=== PATIENT | male | born 1970 | race Caucasian/White ===

== ENCOUNTER 2017-12-17 18:49 | Emergency (ER) | payer OTHER ==
--- NOTE | 2017-12-17 19:30 | ED Physician Documentation ---
PD HPI LOWER EXT INJURY - Stated complaint Stated Complaint: ANKLE PAIN - Chief complaint Chief Complaint: Ext Problem - History obtained from History obtained from: Patient - History of Present Illness PD HPI LOW EXT INJURY LOCATION: Left, Ankle Type of injury: Twist Timing - onset: Today Timing - duration: Hours (6) Timing - details: Abrupt onset Pain level max: 6 Pain level now: 4 Improved by: Rest, Ice, Immobilization Worsened by: Moving, Palpating Associated symptoms: Swelling. No: Weakness, Numbness, Tingling, Discolored Contributing factors: No: Anticoagulated Recently seen: Not recently seen Review of Systems Neurologic: denies: Focal weakness, Numbness PD PAST MEDICAL HISTORY - Past Medical History Cardiovascular: Hypertension, High cholesterol - Past Surgical History Past Surgical History: No - Present Medications Home Medications: Ambulatory Orders Medication Instructions Recorded Confirmed Atorvastatin Calcium [Lipitor] 10 mg PO DAILY 08/21/14 08/21/14 hydroCHLOROthiazide 25 mg PO DAILY 08/21/14 08/21/14 [Hydrochlorothiazide] Meloxicam [Mobic] 7.5 mg PO BID PRN #20 tablet 12/17/17 - Allergies Allergies/Adverse Reactions: Allergies Allergy/AdvReac Type Severity Reaction Status Date / Time No Known Drug Allergies Allergy Verified 12/17/17 18:57 - Social History Does the pt smoke?: No Smoking Status: Never smoker Does the pt drink ETOH?: Yes Does the pt have substance abuse?: No - Immunizations Immunizations are current?: Yes - POLST Patient has POLST: Yes PD ED PE NORMAL - Vitals Vital signs reviewed: Yes - General General: Alert and oriented X 3, No acute distress - Derm Derm: Warm and dry - Extremities Extremities: Other (Left ankle - Mild soft tissue swelling, especially around the lateral malleolus. Tenderness palpation at this point. No tenderness over the foot. Neurovascularly intact. Has been able to ambulate on the ankle.) - Neuro Neuro: Alert and oriented X 3 Results - Vitals Vitals: Vital Signs - 24 hr 12/17/17 12/17/17 18:56 20:11 Temperature 36.9 C Heart Rate 98 88 Respiratory 16 18 Rate Blood Pressure 144/84 H 138/80 H O2 Saturation 96 96 Oxygen O2 Source Room air - Rads (name of study) Left ankle x-ray Radiology: Prelim report reviewed, EMP read contemporaneously, See rad report ( No acute fracture) PD MEDICAL DECISION MAKING - ED course Complexity details: reviewed results, re-evaluated patient, considered differential, d/w patient ED course: Patient is a 47-year-old male who presents to the emergency department with a left ankle sprain. Placed in an air splint. Neurovascularly intact. Counseled regarding missed fractures and may need repeat xrays if not improving. Patient counseled regarding signs and symptoms for which I believe and urgent re-evaluation would be necessary. Patient with good understanding of and agreement to plan and is comfortable going home at this time This document was made in part using voice recognition software. While efforts are made to proofread this document, sound alike and grammatical errors may occur. - Sepsis Event Vital Signs: Vital Signs - 24 hr 12/17/17 12/17/17 18:56 20:11 Temperature 36.9 C Heart Rate 98 88 Respiratory 16 18 Rate Blood Pressure 144/84 H 138/80 H O2 Saturation 96 96 Oxygen O2 Source Room air Departure - Departure Disposition: 01 Home, Self Care Clinical Impression: Ankle sprain Qualifiers: Encounter type: initial encounter Involved ligament of ankle: unspecified ligament Laterality: left Qualified Code(s): S93.402A - Sprain of unspecified ligament of left ankle, initial encounter Condition: Good Instructions: ED Sprain Ankle Follow-Up: ALICIA MONTGOMERY PA-C [Primary Care Provider] - Within 1 week Prescriptions: Meloxicam [Mobic] 7.5 mg PO BID PRN #20 tablet PRN Reason: Pain Comments: Return if you worsen. He may bear weight as tolerated. Use the crutches to help you at home. Follow-up with your doctor in 1 week for repeat evaluation. Discharge Date/Time: 12/17/17 20:11
--- NOTE | 2017-12-17 19:34 | XRAY Report ---
Procedure Date: 12/17/2017 Accession Number: [id number] / [id number] Procedure: XR - Ankle 3 View LT CPT Code: FULL RESULT: EXAM: LEFT ANKLE RADIOGRAPHY EXAM DATE: 12/17/2017 07:15 PM. CLINICAL HISTORY: Left ankle pain after twist and fall today. COMPARISON: None. TECHNIQUE: 3 views. FINDINGS: Bones: Small accessory os supra naviculare. No fracture or bone lesion. Joints: Normal alignment. The ankle mortise is symmetric. Small tibiotalar joint effusion. Soft Tissues: Mild lateral swelling. IMPRESSION: No acute bony abnormality. RADIA
[2017-12-17 21:47] VITALS: BP 138/80
== END 2017-12-17 20:11 | disposition home or self-care (01) ==
LOC: ED 18:49
DX: S93.402A Sprain of unspecified ligament of left ankle, initial encounter (principal); X50.9XXA Other and unspecified overexertion or strenuous movements or postures, initial encounter; I10 Essential (primary) hypertension; E78.00 Pure hypercholesterolemia, unspecified
CPT/HCPCS: 99283

== ENCOUNTER 2020-04-08 19:01 | Emergency (ER) | payer OTHER ==
[2020-04-08 19:28] VITALS: BP 130/84
--- NOTE | 2020-04-08 19:40 | ED Physician Documentation ---
PD HPI SKIN - Stated complaint Stated Complaint: RASH - Chief complaint Chief Complaint: Wound - History obtained from History obtained from: Patient - History of Present Illness Timing - onset: How many days ago (has had a pea-sized bump under skin left side of face for few months, slightly bigger for a month, and now few days of increased redness, swelling, tenderness of the area. Believes it is now infected.) Timing - duration: Days Timing - details: Gradual onset, Still present Location: Face (left side of face, preauricular area.) Quality / character: Painful, Discolored (red), Swelling. No: Draining Associated symptoms: No: Fever, Headache Similar symptoms before: Has not had sx before Review of Systems Constitutional: denies: Fever, Chills Neurologic: denies: Focal weakness, Numbness PD PAST MEDICAL HISTORY - Past Medical History Past Medical History: Yes Cardiovascular: Hypertension, High cholesterol - Past Surgical History Past Surgical History: No - Present Medications Home Medications: Ambulatory Orders Medication Instructions Recorded Confirmed Atorvastatin Calcium [Lipitor] 10 mg PO DAILY 08/21/14 08/21/14 hydroCHLOROthiazide 25 mg PO DAILY 08/21/14 08/21/14 [Hydrochlorothiazide] Sulfamethox/Trimeth 800/160 1 each PO BID #14 tablet 04/08/20 [Bactrim Ds 800/160] - Allergies Allergies/Adverse Reactions: Allergies Allergy/AdvReac Type Severity Reaction Status Date / Time No Known Drug Allergies Allergy Verified 12/17/17 18:57 - Social History Does the pt smoke?: No Smoking Status: Never smoker Does the pt drink ETOH?: Yes Does the pt have substance abuse?: No - Immunizations Immunizations are current?: Yes - POLST Patient has POLST: Yes PD ED PE NORMAL - Vitals Vital signs reviewed: Yes - General General: Alert and oriented X 3, No acute distress, Well developed/nourished - HEENT HEENT: Other (normal facial movement and sensation) - Neck Neck: Supple, no meningeal sign, No adenopathy - Derm Derm: Normal color, Warm and dry, Other (left preauricular area with local swelling, tender, redness. Mild fluctuance. Bedside U/S showing small fluid collection 1 cm. ) Results - Vitals Vitals: Vital Signs - 24 hr 04/08/20 19:23 Temperature 36.4 C L Heart Rate 80 Respiratory 16 Rate Blood Pressure 130/84 H O2 Saturation 96 Oxygen O2 Source Room air Procedures - Abscess I&D (location) left side of face Preparation: Confirmed with ultrasound, Lidocaine 1%, With epi Incision: Incised with scalpel, Purulent drainage (thick sebaceum along with some purulence expressed.), Irrigated Other: Pt tolerated well, Antibiotic prescribed PD MEDICAL DECISION MAKING - ED course Complexity details: considered differential (seems infected secaceous cyst.), d/w patient Departure - Departure Disposition: Home, Self Care Clinical Impression: Infected sebaceous cyst Condition: Stable Record reviewed to determine appropriate education?: Yes Instructions: ED Abscess IandD Follow-Up: OLIVE Arreguin [Provider Group] Prescriptions: Sulfamethox/Trimeth 800/160 [Bactrim Ds 800/160] 1 each PO BID #14 tablet Comments: Warm moist compresses to the area to promote further drainage. Bactrim antibiotic twice daily for 5-7 dyas, until fully improved. Once the infection is better, then the cyst part can be excised sometime in the near future with better skin healing, to avoid re-infection of the area. Discharge Date/Time: 04/08/20 20:13
[2020-04-08] MEDS ORDERED: IBUPROFEN 600 MG TABLET PO STA (20:04)
[2020-04-08] MEDS ORDERED: SULFAMETH/TRIMETH DS 800/160 MG TABLET PO STA (20:04)
== END 2020-04-08 20:13 | disposition home or self-care (01) ==
LOC: ED 19:01
DX: B43.2 Subcutaneous pheomycotic abscess and cyst (principal); I10 Essential (primary) hypertension
CPT/HCPCS: 10060; 99282; 99283; A9270